=== PATIENT | female | born 1955 | race Hispanic/Latino ===

== ENCOUNTER 2024-11-20 03:40 | Emergency (ER) | payer OTHER, MEDICARE, MEDICAID ==
[~2024-11-20] VITALS: Ht 157.5 cm; Wt 76.2 kg
--- NOTE | 2024-11-20 03:54 | ERN ---
ED Note History of Present Illness Stated Complaint: DIZZINESS Chief Complaint: Dizzy/Light Headed Time Seen by MD: 03:45 Dictation: This is a 69-year-old female who presented to the emergency room with complaints of severe dizziness and lightheadedness. Patient was sleeping and turned to the side to get up to go to the bathroom when she immediately started feeling extremely lightheaded and sick and felt like the whole room was spinning. She denied any headaches blurred vision diplopia facial droop slurred speech or any motor weakness. No nausea vomitings. No fever chills or rigors. No tinnitus or hearing loss complains of neck pain She had extensive cardiac workup including echocardiogram a couple of months ago but we do not have access to those records. Temperature 97.5 pulse 53 respirations 18 blood pressure 153 over 52 pulse oximetry 98% on room air Chronic medical problems include diabetes mellitus type 2, hypertension, hypercholesterolemia and a history of hyponatremia in the past Allergies: Coded Allergies: No Known Drug Allergies (Unverified Allergy, Unknown, 11/20/24) Past Medical History Past Medical History: Diabetes-Type II, High Cholesterol, Hypertension, Other Additional Past Medical Hx: HYPONATREMIA Surgical History: Cholecystectomy Family History: Negative Social History: Negative History: Not Applicable RN Note Reviewed/Agreed w/PFSH: Yes Review of System Dictation Constitutional: Negative for fever,chills, and weight loss Eyes: Negative for injury, pain,redness, and discharge ENT: Negative for injury,pain or swelling Cardiovascular: Negative for chest pain, palpitations, and edema Respiratory: Negative for shortness of breath, cough, and wheezing, Abdomen/GI: Negative for abdominal pain, nausea, vomiting, diarrhea, and constipation Back: Negative for injury and pain : Negative for injury, bleeding and discharge MS/Extremity: Negative for injury and deformity Skin: Negative for rash, and discoloration Neuro: Negative for headache, weakness, numbness, tingling, and seizure vertigo symptoms Psych: Negative for suicide ideation, homicidal ideation, and hallucinations Initial Vital Sign VS Vital Signs Date Time Temp Pulse Resp B/P (MAP) Pulse Ox O2 Delivery O2 Flow Rate FiO2 11/20/24 03:42 97.5 53 18 153/52 98 Room Air 0 Physical Exam Dictation General: awake, alert, NAD very pleasant Head/Face: Normocephalic, atraumatic hard to appreciate the nystagmus Eyes: PERRL, EOMI, vision at baseline ENT: oral cavity clear, TMs clear, no signs of infection no ear drainage Neck: Trachea midline, supple, no nuchal rigidity no carotid bruits Cardiovascular: RRR, normal S1/S2, No MRGs, no JVD no obvious murmurs Respiratory: CTAB, no respiratory distress, No rales or wheezes Abdomen: Soft, non-tender, non-distended, normal bowel sounds, no guarding or rebound. Skin: Warm, dry, normal turgor, no rash MS/Extremity: Pulses equal, no cyanosis, neurovascular intact, FROM Neuro: COAx4, GCS 15, strength 5/5, CN 2-12 intact, normal cerebellar exam, normal gait, Psych: Normal behavior, mood, and affect normal Extremities-trace edema without any palpable cords, Homans sign is negative Results (Laboratory/Radiology) Laboratory/Radiology Laboratory Tests Test 11/20/24 03:50 11/20/24 04:13 Urine Color LIGHT-YELLOW (YELLOW) Urine Appearance CLEAR (CLEAR) Urine pH 7.0 (5.0-8.0) Urine Specific [place] 1.008 (1.001-1.031) Urine Protein NEGATIVE mg/dL (NEGATIVE) Urine Glucose (UA) NEGATIVE mg/dL (NEGATIVE) Urine Ketones NEGATIVE mg/dL (NEGATIVE) Urine Occult Blood NEGATIVE (NEGATIVE) Urine Nitrate 1+ (NEGATIVE) H Urine Bilirubin NEGATIVE mg/dL (NEGATIVE) Urine Urobilinogen 0.2 mg/dL (0.2-1.0) Urine Leukocyte Esterase 25 Demond/uL (NEGATIVE) H Urine RBC 0-1 /HPF (0-1) Urine WBC 2-5 /HPF (0-1) H Urine Bacteria FEW /HPF (None Seen) White Blood Count 5.9 K/uL (4.8-10.8) Red Blood Count 3.47 MIL/uL (4.00-5.50) L Hemoglobin 11.0 g/dL (12.0-16.0) L Hematocrit 32.5 % (36-48) L Mean Corpuscular Volume 93.7 fL (79-99) Mean Corpuscular Hemoglobin 31.7 pg (27.0-33.0) Mean Corpuscular Hemoglobin Concent 33.8 g/dL (32.0-36.0) Red Cell Distribution Width 12.3 % (11.0-15.5) Platelet Count 245 K/uL (130-400) Mean Platelet Volume 9.5 fL (7.5-10.5) Immature Granulocyte % (Auto) 0.2 % (0-1) Neutrophils (%) (Auto) 54.9 % (40.0-77.0) Lymphocytes (%) (Auto) 33.5 % (21.0-51.0) Monocytes (%) (Auto) 9.7 % (3.0-13.0) Eosinophils (%) (Auto) 1.5 % (0.0-8.0) Basophils (%) (Auto) 0.2 % (0.0-5.0) Neutrophils # (Auto) 3.2 K/uL (1.8-7.7) Lymphocytes # (Auto) 2.0 K/uL (1.0-4.8) Monocytes # (Auto) 0.6 K/uL (0.1-1.0) Eosinophils # (Auto) 0.09 K/uL (0.00-0.70) Basophils # (Auto) 0.01 K/uL (0.00-0.20) Absolute Immature Granulocyte (auto 0.01 K/uL (0-1) Nucleated Red Blood Cells 0.0 % (0.0-0.19) Sodium Level 133 mmol/L (136-145) L Potassium Level 4.2 mmol/L (3.5-5.1) Chloride Level 99 mmol/L (101-111) L Carbon Dioxide Level 27 mmol/L (21-32) Blood Urea Nitrogen 11 mg/dL (7-18) Creatinine 0.7 mg/dL (0.5-1.0) Glomerular Filtration Rate Calc 92 mL/min (>90) Random Glucose 181 mg/dL (70-105) H Total Calcium 8.7 mg/dL (8.5-10.1) Total Creatine Kinase 42 U/L (21-232) Troponin I High Sensitivity < 4.0 ng/L (4-50) L Labs Reviewed?: Yes ED Course ED Course Orders Procedure Category Date Status Time Cbc With Differential LAB 11/20/24 Complete 03:49 Cardiac Panel LAB 11/20/24 Complete 03:49 Urinalysis Profile LAB 11/20/24 Complete 03:49 Chest 1vw RAD 11/20/24 Taken 03:49 12 Lead Ekg Tracing- EKG 11/20/24 Logged Technical 03:49 0.9%Nacl 1000ml (Ns PHA 11/20/24 In Process 1000ml) 04:00 Basic Metabolic Panel LAB 11/20/24 Complete 03:49 Culture Urine BONI 11/20/24 In Process 04:22 Methylprednisolone PHA 11/20/24 Complete Succ 40mg (Solu-Medro 04:30 Meclizine Hcl 12.5 Mg PHA 11/20/24 Complete (Antivert 12.5 Mg) 04:30 Current Medications Medications (Trade) Dose Ordered Sig/Park Route PRN Reason Start Time Stop Time Status Last Admin Dose Admin Meclizine HCl (ANTIvert 12.5 mg) 12.5 mg ONCE ONCE PO 11/20/24 04:30 11/20/24 04:31 DC 11/20/24 04:30 Methylprednisolone Sodium Succinate (Solu-medROL 40MG) 40 mg ONCE ONCE IVP 11/20/24 04:30 11/20/24 04:31 DC 11/20/24 04:30 Sodium Chloride 1,000 ml @ 125 mls/hr ONCE ONCE IV 11/20/24 04:00 11/20/24 11:59 11/20/24 04:21 Vital Signs Date Time Temp Pulse Resp B/P (MAP) Pulse Ox O2 Delivery O2 Flow Rate FiO2 11/20/24 03:42 97.5 53 18 153/52 98 Room Air 0 We will perform diagnostic labs, advanced imaging and administer medications according to the patient's complaint. Once the results are available, will review and personally interpreted the labs to rule out any acute life- threatening emergency the trach require immediate intervention and treatment. I will then re-evaluate the patient after treatment and diagnostic exams have return to determine whether the patient requires any further testing, can safely be discharged home or need further admission to hospital for additional treatment and evaluation. Labs reviewed CBC shows a hemoglobin of 11. BNP 7 showed a sodium of 133 potassium 4.2 troponins are negative chest x-ray is unremarkable for any acute infiltrate. Urinalysis showed small amount of leuko esterase. She responded very well to a trial of steroid and meclizine Medical Decision Making MDM MDM: Differential diagnosis: Dehydration, viral syndrome, cervical spondylosis, labyrinthitis, benign positional vertigo Rationale: Tests considered and ordered secondary to shared decision making include: Previous outside records reviewed: Old ER visits. Risk of complication and/or morbidity or mortality of patient management: None Medications-Per medication reconciliation Need for hospitalization: Patient does not meet criteria for hospitalization. Need for emergency major/minor surgery: No There are no social concerns with this patient. Prescription drug management Prescriptions will include symptomatic care Patient's prior external medical records from other ER visits were reviewed by me as indicated. Prior testing and results from previous visits were reviewed. Prior tests were taken into account with medical decision making and resource utilization, independent historian/historians were used to obtain complete medical history. I independently interpreted the test that were performed, results were reviewed by me and considered findings on radiology if ordered. Medical management and examination interpretation discussions were had by me with other qualified healthcare professionals as indicated for the patient's care. Problem List Problem List: (1) Vertigo (2) Labyrinthitis DX & DISP Disposition: Discharge Departure Impression: Primary Impression: Vertigo Additional Impression: Labyrinthitis Condition: Stable Scripts Meclizine HCl (Meclizine HCl) 25 Mg Tablet 25 MG PO TID for dizziness, #30 TAB 0 Refills Prov: RAMIRO HAMPTON MD 11/20/24 Prednisone (Prednisone) 20 Mg Tablet 1 TAB PO AD for 6 Days, #14 TAB 0 Refills TAKE 1 TAB BY MOUTH THREE TIMES PER DAY X3 DAYS, THEN TAKE 1 TAB BY MOUTH TWICE A DAY X2 DAYS, THEN TAKE 1 TAB BY MOUTH ONCE A DAY X1 DAY. Prov: RAMIRO HAMPTON MD 11/20/24 Additional Instructions: Patient and the caregiver have been informed of all the diagnostic tests and the imaging conducted during the today's visit to the emergency room and has verbalized understanding of the results I have personally reviewed and interpreted all diagnostic exams performed here in the ER today as well as the vital signs documented by the nursing staff. The patient is now being discharged to home and should follow up with the primary care physician or the specialist as directed by the ER staff. Follow-up with primary care provider in 1 to 2 days. Take medications as directed here in the emergency room. Okay to continue home medications unless otherwise discussed during your visit in the emergency room today. Return to your nearest emergency room if symptoms worsen or if there is no improvement. Call 911 if you need immediate assistance. Take Tylenol or Motrin [id number] as needed and if no contraindications are present. Increase oral hydration. A wound culture or urine culture was ordered here in the emergency room department please follow-up with primary care provider and advise them to get repeat ports from our facility. If you had any Miguel wrap/splints that were applied here, please do not remove them until you see your primary care or specialty. Referrals: NONE (PCP) RAMIRO HAMPTON MD Nov 20, 2024 03:53
[2024-11-20 04:18] LABS: APPEARANCE,URINE CLEAR (CLEAR); BILIRUBIN,URINE NEGATIVE (NEGATIVE); COLOR,URINE LIGHT-YELLOW (YELLOW); GLUCOSE, URINE (UA) NEGATIVE (NEGATIVE); KETONES,URINE NEGATIVE (NEGATIVE); LEUKOCYTE ESTERASE ,URINE 25 Leu/uL (NEGATIVE); NITRATE,URINE 1+ (NEGATIVE); OCCULT BLOOD,URINE NEGATIVE (NEGATIVE); PROTEIN,URINE NEGATIVE (NEGATIVE); UROBILINOGEN,URINE 0.2 mg/dL (0.2-1.0)
[2024-11-20 04:20] LABS: ADD UA MICROSCOPIC YES
[2024-11-20 04:21] LABS: BASOPHILS # (AUTO) 0.01 K/uL (0.00-0.20); BASOPHILS % (AUTO) 0.2 % (0.0-5.0); EOSINOPHILS # (AUTO) 0.09 K/uL (0.00-0.70); EOSINOPHILS % (AUTO) 1.5 % (0.0-8.0); HEMATOCRIT 32.5 % (36-48); IMMATURE GRANULOCYTE ABSOLUTE 0.01 K/uL (0-1); LYMPHOCYTES % (AUTO) 33.5 % (21.0-51.0); MEAN CORPUSCULAR HEMOGLOBIN 31.7 pg (27.0-33.0); MEAN CORPUSCULAR HGB CONC 33.8 g/dL (32.0-36.0); MEAN CORPUSCULAR VOLUME 93.7 fL (79-99); MONOCYTES # (AUTO) 0.6 K/uL (0.1-1.0); MONOCYTES % (AUTO) 9.7 % (3.0-13.0); NEUTROPHILS # (AUTO) 3.2 K/uL (1.8-7.7); NEUTROPHILS % (AUTO) 54.9 % (40.0-77.0); PLATELET COUNT (AUTO) 245 K/uL (130-400); RED BLOOD CELL COUNT(AUTO) 3.47 MIL/uL (4.00-5.50); RED CELL DISTRIBUTION WIDTH 12.3 % (11.0-15.5); WHITE BLOOD COUNT (AUTO) 5.9 K/uL (4.8-10.8)
[2024-11-20] MEDS: 0.9%NACL 1000ML 1,000 ML IV ONE (04:21)
[2024-11-20 04:25] LABS: BACTERIA,URINE FEW /HPF (None Seen); MUCUS,URINE RARE LPF (None Seen); RBC,URINE 0-1 /HPF (0-1)
[2024-11-20 04:29] LABS: CARBON DIOXIDE 27 mmol/L (21-32); CHLORIDE 99 mmol/L (101-111); CREATININE 0.7 mg/dL (0.5-1.0); GLOMERULAR FILTR. RATE CALC 92 mL/min (>90); GLUCOSE,RANDOM 181 mg/dL (70-105); POTASSIUM 4.2 mmol/L (3.5-5.1); SODIUM SERUM 133 mmol/L (136-145); UREA NITROGEN, BLOOD 11 mg/dL (7-18)
[2024-11-20] MEDS: Solu-medROL 40MG VIAL IVP ONE (04:30)
[2024-11-20] MEDS: mecliZINE HCL 12.5 MG TABLET PO ONE (04:30)
[2024-11-20 04:37] LABS: CREATINE KINASE, TOTAL 42 U/L (21-232)
[2024-11-20] MEDS ORDERED: PRED20TA3 PO (05:11)
[2024-11-20] MEDS ORDERED: MECL-302 PO (05:11)
[2024-11-20 06:00] VITALS: BP 143/61; PULSE 68; RESP 18; TEMP 98.1; O2SAT 98
--- NOTE | 2024-11-20 06:35 | EKG ---
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
--- NOTE | 2024-11-20 08:35 | HMCIMG ---
Exam Type: CHEST 1VW Clinical Information: SYNCOPE Comparison: None Findings: The lungs are clear of infiltrates. The heart is normal in size. The bony and soft tissue structures of the chest are unremarkable. Impression: Clear lungs.
== END 2024-11-20 06:02 | disposition home or self-care (01) ==
LOC: EDH 03:40
DX: R42 Dizziness and giddiness (principal); H83.09 Labyrinthitis, unspecified ear; R82.998 Other abnormal findings in urine; E11.9 Type 2 diabetes mellitus without complications; E78.00 Pure hypercholesterolemia, unspecified; I10 Essential (primary) hypertension; Z90.49 Acquired absence of other specified parts of digestive tract
CPT/HCPCS: 99285; 82550; 84484; 80048; 85025; 87086 ×2; 87186; 81001; 36415; 71045; 96374; 93005; J7030; J2919